=== PATIENT | male | born 1935 | race Caucasian/White ===

== ENCOUNTER 2020-09-05 21:20 | Emergency (ER) | payer MEDICARE, OTHER ==
[2020-09-05] MEDS ORDERED: cloNIDine 0.1 MG Tab PO STA (21:29)
--- NOTE | 2020-09-05 22:13 | EDM.PDOC ---
ED HPI GENERAL MEDICAL PROBLEM - General Chief Complaint: General Stated Complaint: elevated BP Time Seen by Provider: 09/05/20 21:45 Source of Information: Reports: Patient History Limitations: Reports: No Limitations - History of Present Illness INITIAL COMMENTS - FREE TEXT/NARRATIVE: Spencer is an 85 year old male who presents to ER with concerns of elevated blood pressure. Was seen by Cierra Ricks last Sunday for a pre-op as is scheduled for a total hip replacement on September 15. Was found to have a blood pressure of 230s/120s at that visit. Patient relates she increased his Lisinopril from 20 mg to 40 mg. Has been periodically checking it at home and has continued to run high. Today, blood pressure was 220/112 at home. Took an extra Lisinopril an hour ago but was worried to not have better results for the night. He denies any chest pain, shortness of breath, headache, bloody nose, etc. States is feeling good. Onset: Gradual Duration: Week(s): Associated Symptoms: Denies: Confusion, Chest Pain, Cough, Fever/Chills, Loss of Appetite, Nausea/Vomiting, Shortness of Breath - Related Data Allergies Allergy/AdvReac Type Severity Reaction Status Date / Time No Known Allergies Allergy Verified 09/05/20 21:21 Home Meds: Home Meds Aspirin [Ecotrin] 325 mg PO DAILY 09/22/15 [History] Lisinopril 20 mg PO DAILY 09/22/15 [History] Simvastatin [Zocor] 80 mg PO DAILY 09/22/15 [History] Terazosin [Hytrin] 5 mg PO DAILY 09/22/15 [History] Insulin Lispro [HumaLOG] 18 unit SQ TIDAC 09/05/20 [History] Past Medical History HEENT History: Reports: Cataract Cardiovascular History: Reports: High Cholesterol, Hypertension Endocrine/Metabolic History: Reports: Diabetes, Type II - Past Surgical History HEENT Surgical History: Reports: Adenoidectomy, Tonsillectomy GI Surgical History: Reports: Appendectomy Social & Family History - Family History Family Medical History: No Pertinent Family History - Tobacco Use Tobacco Use Status *Q: Never Tobacco User Second Hand Smoke Exposure: No - Caffeine Use Caffeine Use: Reports: Coffee, Soda ED ROS GENERAL - Review of Systems Review Of Systems: See Below Constitutional: Reports: Fever. Denies: Chills, Malaise, Weakness, Decreased Appetite HEENT: Denies: Ear Pain, Nosebleed, Sinus Problem, Throat Pain, Vertigo Respiratory: Denies: Shortness of Breath, Cough Cardiovascular: Denies: Chest Pain, Edema, Lightheadedness Endocrine: Denies: Fatigue GI/Abdominal: Reports: Vomiting. Denies: Abdominal Pain, Nausea : Reports: No Symptoms Musculoskeletal: Reports: No Symptoms Skin: Reports: No Symptoms Neurological: Reports: No Symptoms ED EXAM, GENERAL - Physical Exam Exam: See Below Exam Limited By: No Limitations General Appearance: Alert, WD/WN, No Apparent Distress Eye Exam: Bilateral Eye: EOMI, PERRL Ears: Normal External Exam, Normal TMs Nose: Normal Inspection, Normal Mucosa, No Blood Throat/Mouth: Normal Inspection, Normal Oropharynx Head: Normocephalic Neck: Normal Inspection, Supple, Non-Tender Respiratory/Chest: No Respiratory Distress, Lungs Clear, Normal Breath Sounds Cardiovascular: Regular Rate, Rhythm GI/Abdominal: Normal Bowel Sounds, Soft, Non-Tender Extremities: Normal Inspection, No Pedal Edema Neurological: Alert, Oriented Skin Exam: Warm, Dry Course - Vital Signs Last Recorded V/S: Last Vital Signs Temp 98 F 09/05/20 21:37 Pulse 72 09/05/20 22:00 Resp 18 09/05/20 21:37 BP 174/86 H 09/05/20 22:29 Pulse Ox 96 09/05/20 21:37 - Orders/Labs/Meds Meds: Medications Discontinued Medications Generic Name Dose Route Start Last Admin Trade Name Haley PRN Reason Stop Dose Admin Clonidine HCl 0.1 mg 09/05/20 21:29 09/05/20 21:33 Clonidine 0.1 Mg Tab PO 09/05/20 21:30 0.1 mg STAT STA Administration - Re-Assessments/Exams Free Text/Narrative Re-Assessment/Exam: 09/05/20 22:35 Blood pressure 174/86. Discussed taking his new dose of Lisinopril 40 mg in the am, start Norvasc 5 mg every HS. Will need to check blood pressure tomorrow at drug store and call Cierra if concerns. Keep scheduled appointment with Cierra on Sunday. Departure - Departure Time of Disposition: 22:36 Disposition: Home, Self-Care 01 Condition: Good Clinical Impression: Asymptomatic hypertensive urgency - Discharge Information *PRESCRIPTION DRUG MONITORING PROGRAM REVIEWED*: No *COPY OF PRESCRIPTION DRUG MONITORING REPORT IN PATIENT KATHY: No Instructions: Hypertension, Adult, [id number] Forms: ED Department Discharge Additional Instructions: 1. Rest 2. Take usual dose of Lisinopril 40 mg in the am, add Norvasc 5 mg at bedtime 3. Check blood pressure at pharmacy tomorrow when get medications filled, call Cierra Ricks's office if still concerning 4. Follow up with Cierra on Sunday in clinic as planned Sepsis Event Note (ED) - Evaluation Sepsis Screening Result: No Definite Risk - Focused Exam Vital Signs: Vital Signs Temp Pulse Resp BP BP Pulse Ox 09/05/20 22:29 174/86 H 09/05/20 22:10 206/107 H 09/05/20 22:00 72 241/130 H 09/05/20 21:37 98 F 86 18 238/126 H 96 09/05/20 21:33 238/126 H
[2020-09-05 22:25] VITALS: PULSE 72
[2020-09-05 22:29] VITALS: BP 174/86
== END 2020-09-05 22:45 | disposition home or self-care (01) ==
LOC: CC.ED 21:20
DX: I16.0 Hypertensive urgency (principal); E78.00 Pure hypercholesterolemia, unspecified; I10 Essential (primary) hypertension; E11.9 Type 2 diabetes mellitus without complications; Z79.82 Long term (current) use of aspirin; Z79.4 Long term (current) use of insulin; Z79.899 Other long term (current) drug therapy
CPT/HCPCS: 99283; 99284; A9270